=== PATIENT | female | born 1985 | race African-American/Black ===

== ENCOUNTER 2023-09-12 02:24 | Emergency (ER) | payer MEDICAID ==
[~2023-09-12] VITALS: Ht 165.1 cm; Wt 94.0 kg
[~2023-09-12 02:24] MED LIST: PREN-88 PO
[2023-09-12 02:30] VITALS: BP 137/91; O2SAT 97
[2023-09-12 03:00] LABS: BASOPHILS % 0.5 % (0.0-2.0); HEMATOCRIT. 39.6 % (36.0-48.0); HEMOGLOBIN. 13.4 g/dL (12.0-16.0); LYMPHOCYTES % 31.3 % (20.0-50.0); MEAN CORPUSCULAR HEMOGLOBIN 28.7 pg (28.0-32.0); MEAN CORPUSCULAR HGB CONC 33.9 g/dL (31.0-37.0); MEAN CORPUSCULAR VOLUME 84.8 fL (81.0-99.0); MEAN PLATELET VOLUME 9.6 fl (7.4-10.4); MONOCYTES % 7.8 % (2.0-8.0); NEUTROPHILS % 59.4 % (40.0-76.0); PLATELET 219 x1000/uL (130-400); RED BLOOD CELL COUNT 4.67 mill/uL (4.2-5.4); RED CELL DISTRIBUTION WIDTH 14.1 % (11.6-14.6); WHITE BLOOD COUNT 5.1 x1000/uL (4.5-11.0)
[2023-09-12 03:06] LABS: CHLORIDE 109 mEq/L (98-107); INDEX HEMOLYSI 1 (1-3); INDEX ICTERIC 1 (1-4); INDEX LIPEMIC 1 (1-3); POTASSIUM 4.1 mEq/L (3.5-5.1); SODIUM 141 mEq/L (136-145)
[2023-09-12 03:09] LABS: HCG SCREEN NEGATIVE
[2023-09-12 03:12] LABS: ALANINE AMINOTRANSFERASE 50 IU/L (13-61); ALBUMIN 3.7 g/dL (3.4-5.0); ASPARTATE AMINOTRANSFERASE 24 IU/L (15-37); BILIRUBIN TOTAL 0.3 mg/dL (0.1-1.0); CALCIUM 8.6 mg/dL (8.5-10.1); CARBON DIOXIDE 27 mEq/L (21-32); CREATININE 0.9 mg/dL (0.6-1.3); GLUCOSE 102 mg/dL (70-105); PROTEIN TOTAL 7.4 g/dL (6.0-8.3); UREA NITROGEN BLOOD 13 mg/dL (7-21)
[2023-09-12] MEDS ORDERED: KETOROLAC 30MG/ML VIAL IM ONE (05:45)
[2023-09-12] MEDS ORDERED: ONDANSETRON HCL 4MG/2ML INJ IM ONE (05:45)
[2023-09-12] MEDS ORDERED: IBUP-2029 MT (07:17)
[2023-09-12 07:24] VITALS: PULSE 66; RESP 16; TEMP 98.9
== END 2023-09-12 07:27 | disposition home or self-care (01) ==
LOC: ER 02:24
DX: R10.11 Right upper quadrant pain (principal)
CPT/HCPCS: 80053; 81025; 84703; 83690; 85025; 36415; 93005; 96372; 99284; J1885; J2405; Z7610